=== PATIENT | male | born 1940 | race Two or more races ===

== ENCOUNTER 2021-10-06 16:00 | Emergency (ER) | payer OTHER ==
[~2021-10-06] VITALS: Ht 177.8 cm; Wt 98.0 kg
[2021-10-06] MEDS ORDERED: METO25ER (16:16)
[2021-10-06] MEDS ORDERED: LISI5 PO (16:16)
[2021-10-06 17:46] LABS: BASOPHILS ABSOLUTE AUTO 0.04 K/mm3 (0.00-0.23); BASOPHILS PERCENT AUTO 0 % (0-2); EOSINOPHILS ABSOLUTE AUTO 0.02 K/mm3 (0.00-0.68); EOSINOPHILS PERCENT AUTO 0 % (0-6); Hematocrit 44.2 % (37.0-53.0); Hemoglobin 14.7 g/dL (13.5-17.5); IMMATURE GRAN ABSOLUTE AUTO 0.04 K/mm3 (0.00-0.10); IMMATURE GRAN PERCENT AUTO 0 % (0-1); LYMPHOCYTES ABSOLUTE AUTO 2.21 K/mm3 (0.84-5.20); LYMPHOCYTES PERCENT AUTO 16 % (21-46); MONOCYTES ABSOLUTE AUTO 0.81 K/mm3 (0.16-1.47); MONOCYTES PERCENT AUTO 6 % (4-13); Mean Corpuscular HGB 30.8 pg (26.0-34.0); Mean Corpuscular HGB Conc 33.3 g/dL (31.5-36.5); Mean Corpuscular Volume 93 fL (80-100); Mean Platelet Volume 11.9 fL (9.1-12.4); NEUTROPHILS ABSOLUTE AUTO 11.03 K/mm3 (1.96-9.15); NEUTROPHILS PERCENT AUTO 78 % (41-73); Platelet Count 184 K/mm3 (150-400); RDW Coefficient Variation 13.1 % (11.7-14.2); RDW Standard Deviation 45.1 fL (35.1-46.3); Red Blood Cell Count 4.77 M/mm3 (4.30-5.90); White Blood Cell Count 14.15 K/mm3 (4.00-11.30)
[2021-10-06 17:52] LABS: Bun/Creatinine Ratio 21.9 (12.0-20.0); Calcium, Blood 9.2 mg/dL (8.5-10.1); Creatinine, Blood 1.55 mg/dL (0.60-1.20); Magnesium, Blood 2.3 mg/dL (1.6-2.4); Potassium, Blood 3.6 mmol/L (3.5-5.5)
[2021-10-06] MEDS ORDERED: AMLO10 PO (19:32)
[2021-10-06] MEDS ORDERED: ATOR40TA PO (19:33)
[2021-10-06] MEDS ORDERED: LOSA25 PO (19:33)
[2021-10-06 19:43] LABS: Source, Urine Clean Catch
[2021-10-06 19:58] LABS: Bilirubin, Urine Neg (Neg); Blood, Urine 2+ (Neg); Glucose Qualitative, Urine Neg (Neg); Ketones, Urine Neg (Neg); Leukocyte Esterase, Urine 3+ (Neg); Nitrite, Urine Neg (Neg); Protein, Urine 2+ (Neg); Specific Gravity, Urine 1.015 (1.003-1.022); Urobilinogen, Urine NORM (Normal)
[2021-10-06 20:06] LABS: Appearance, Urine Cloudy (Clear); Bacteria Many /hpf; Color, Urine Pale Yellow (P-Yellow); Squamous Epithelial Cells Few /hpf (Few)
[2021-10-06 20:07] LABS: Amorphous Light (0-Heavy); Renal Epithelial Rare /hpf (0-Rare)
== END 2021-10-06 23:49 | disposition short-term general hospital (02) ==
LOC: ER 16:00
PROVIDERS: Student in an Organized Health Care Education/Training Program
DX: N39.0 Urinary tract infection, site not specified (principal); D72.829 Elevated white blood cell count, unspecified; Z88.2 Allergy status to sulfonamides; Z79.899 Other long term (current) drug therapy; I10 Essential (primary) hypertension
CPT/HCPCS: 36415; 51702; 51798; 70450; 72128; 72131; 80048; 81001; 83605; 83735; 85025; 85651; 86140; 87077; 87086; 87186; 93005; 93010; 96374; 99285-25; J0696; J3370; J7050; J7512